=== PATIENT | female | born 1995 | race Hispanic/Latino ===

== ENCOUNTER 2017-04-17 01:18 | Emergency (ER) | payer OTHER ==
[~2017-04-17] VITALS: Ht 157.5 cm; Wt 74.8 kg
[2017-04-17] MEDS ORDERED: LEVOTHYROXINE25 MCG PO (01:44)
[2017-04-17] MEDS ORDERED: AZITHROMYCIN250 M1 PO (01:44)
[2017-04-17] MEDS ORDERED: PROAIR HFA8.5 GM INH (01:44)
--- NOTE | 2017-04-17 01:58 | ED CARDIAC/CP/PALPITATIONS ---
History of Present Illness General Chief Complaint: General Adult Stated Complaint: DIFF BREATHING 02 SAT 99% CHEST DISCOMFORT Source: patient Exam Limitations: no limitations Vital Signs & Intake/Output Vital Signs & Intake/Output Vital Signs Date Time Temp Pulse Resp B/P B/P Pulse O2 O2 Flow FiO2 Mean Ox Delivery Rate 04/17 0500 98.0 89 18 132/86 98 Room Air 04/17 0243 98 Room Air 04/17 0227 98 04/17 0141 97.8 107 18 147/92 98 Room Air Allergies Coded Allergies: NO KNOWN ALLERGIES (01/08/14) Reconcile Medications Albuterol Sulfate (Proair Hfa) 90 MCG HFA.AER.AD 2 PUF INH Q4-6 PRN PRN BRONCHITIS (Reported) Azithromycin 250 MG TABLET 1 DP PO AD BRONCHITIS (Reported) 2 the first day followed by 1 for days 2-5 Levothyroxine Sodium 25 MCG TABLET 1 TAB PO DAILY HYPOTHYROID (Reported) Methylprednisolone. (Medrol) 4 MG TAB.DS.PK 1 DP PO AD INFLAMMATION 6 on day 1 then reduce by one tablet daily until gone Triage Note: TRIAGE: PATIENT TO ER FROM HOME W/ C/O 07/01 CONSTANT SHARP CP X 4 DAYS, +SOB AND PHELEMY COUGH SINCE ONSET. NO ACUTE RESP DISTRESS NOTED, SPEECH CLEAR. CURRENTLY ON MENSES. 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 Triage Nurses Notes Reviewed? yes Onset: Gradual Duration: day(s): (3) Timing: recent history Location: LEFT CHEST Activities at Onset: none Prior Chest Pain/Card Workup: no prior chest pain Associated Symptoms: COUGH, GREEN SPUTUM PRODUCTION : No Patient currently breastfeeds: No HPI: 22 year old female presents with 4 day history of left sided chest pain. States she was put on azithromycin by a walk in clinic and dx with bronchitis. Productive cough for 1 week with green colored sputum. Patient is a smoker. Past History Travel History Traveled to [place] past 21 day No Medical History Any Pertinent Medical History? 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 No Review of Systems Review of Systems Constitutional: Denies: chills, fever. EENTM: Reports: no symptoms. Respiratory: Reports: cough, short of breath, sputum production. Cardiovascular: Reports: chest pain. GI: Denies: abdominal pain, nausea, vomiting. Genitourinary: Reports: no symptoms. Musculoskeletal: Denies: back pain. Skin: Reports: no symptoms. Neurological/Psychological: Reports: no symptoms. Hematologic/Endocrine: Denies: bruising, bleeding. Immunologic/Allergic: Denies: splenectomy. All Other Systems: Reviewed and Negative Physical Exam Physical Exam General Appearance: well developed/nourished, alert, awake, anxious Head: atraumatic, normal appearance Eyes: Bilateral: normal appearance, PERRL, EOMI. Ears, Nose, Throat: normal pharynx, hearing grossly normal Neck: normal inspection, supple, full range of motion Respiratory: normal breath sounds, no respiratory distress, LEFT CHEST WALL TENDERNESS Cardiovascular: regular rate/rhythm Peripheral Pulses: 2+ radial (R), 2+ radial (L) Gastrointestinal: soft, non-tender Neurologic/Psych: no motor/sensory deficits, awake, alert, oriented x 3 Diagram Chest, Abdomen, Back: 1) TENDER TO PALPATION Core Measures ACS in differential dx? Yes ASA ordered for poss ACS? No-ACS ruled out Severe Sepsis Present: No Septic Shock Present: No All Positive = PERC Ruled Out: Positive: age < 50 years, O2 sat > 94%, no hemoptysis, no prior DVT or PE, no unilateral leg swellin, no surgery/trauma w/in 4w. Negative: heart rate < 100 bpm. Progress Differential Diagnosis: costochondritis, musculoskeletal pain, myocarditis, pericarditis, pneumonia, pneumothorax, pulmonary embolism, BRONCHITIS Plan of Care: Orders Procedure Date/time Status Add-on Test (ER Only) 04/17 0403 Active HUMAN BETA HCG TITRE 04/17 0237 Complete PARTIAL THROMBOPLASTIN TIME 04/17 221 Complete PROTHROMBIN TIME 04/17 221 Complete D-DIMER 04/17 221 Complete COMPREHENSIVE METABOLIC PANEL 04/17 221 Complete CBC WITHOUT DIFFERENTIAL 04/17 221 Complete EKG 04/17 221 Active RT ED ORDERS 04/17 0216 Active Laboratory Tests 04/17/17 0237: Anion Gap 16, Estimated GFR > 60, BUN/Creatinine Ratio 18.3, Glucose 116 H, Calcium 9.5, Total Bilirubin 0.3, AST 21, ALT 34, Alkaline Phosphatase 53, Total Protein 7.3, Albumin 4.8, Globulin 2.5, Albumin/Globulin Ratio 1.9, Beta HCG, Quant < 2.4, PT 11.0, INR 1.05, APTT 30, D-Dimer High Sensitivty 248 H, CBC w Diff NO MAN DIFF REQ, RBC 4.54, MCV 93.8, MCH 31.0, RDW 13.3, MPV 10.3, Gran % 73.6, Lymphocytes % 17.3 L, Monocytes % 6.4, Eosinophils % 2.2, Basophils % 0.5 , Absolute Granulocytes 8.1 H, Absolute Lymphocytes 1.9, Absolute Monocytes 0.7 H, Absolute Eosinophils 0.2, Absolute Basophils 0.1, PUBS MCHC 33.0 DUONEB, EKG, D-DIMER 4:49 AM CXR NOT READ BY RADIOLOGY, PATIENT WANTS TO LEAVE AT THIS TIME. IMPROVED AFTER DUONEB. RX SENT TO [facility] FOR MEDROL DOSE PACK (JACLYN CONNELLY,WENDY) Diagnostic Imaging: Viewed by Me: Radiology Read. Discussed w/RAD: Radiology Read. CXR Impression: no acute abnormality Initial ED EKG: NSR, q in III Departure Departure Time of Disposition: 447 Disposition: HOME OR SELF CARE Condition: Stable Clinical Impression Primary Impression: Bronchitis Secondary Impressions: Tobacco abuse Referrals: DOUG CONNELLY,ABELARDO (PCP/Family) Additional Instructions: CONTINUE YOUR AZITHROMYCIN AND PROAIR. TAKE THE PREDNISONE DIRECTED. FOLLOW UP WITH YOUR DOCTOR IN THE OFFICE. STOP SMOKING. RETURN IF WORSE. Departure Forms: Customer Survey General Discharge Information Prescriptions: Current Visit Scripts Methylprednisolone. (Medrol) 1 DP PO AD #1 DP 6 on day 1 then reduce by one tablet daily until gone Critical Care Note Critical Care Note Critical Care Time: non-applicable
[2017-04-17 03:35] LABS: ABSOLUTE BASOPHIL COUNT 0.1 /CUMM (0.0-0.2); ABSOLUTE EOSINOPHIL COUNT 0.2 /CUMM (0.0-0.7); ABSOLUTE GRANULOCYTE CT 8.1 /CUMM (1.4-6.5); ABSOLUTE LYMPH COUNT 1.9 /CUMM (1.2-3.4); ABSOLUTE MONOCYTE COUNT 0.7 /CUMM (0.10-0.60); BASOPHIL % 0.5 % (0.0-2.0); EOSINOPHIL % 2.2 % (0-5); GRANULOCYTE % 73.6 % (42.2-75.2); HEMATOCRIT 42.5 % (37-47); MEAN CORPUSCULAR VOLUME 93.8 FL (81.0-99.0); MEAN PLATELET VOLUME 10.3 FL (7.4-10.4); PLATELET COUNT 274 /CUMM (130-400); RBC DISTRIBUTION WIDTH 13.3 % (11.5-14.5); RED BLOOD CELL CT 4.54 /CUMM (4.20-5.40); WHITE BLOOD CELL COUNT 11.1 /CUMM (4.8-10.8)
[2017-04-17 03:44] LABS: PTT 30 SEC (25-37)
[2017-04-17] MEDS ORDERED: MEDROL4 M2 PO (04:58)
[2017-04-17 05:00] VITALS: BP 132/86
--- NOTE | 2017-04-17 05:02 | RADIOLOGY REPORT ---
EXAMINATION: XR CHEST CLINICAL INFORMATION: Left chest pain. Purulent sputum. Evaluate for pneumonia. COMPARISON: No relevant prior imaging. TECHNIQUE: 2 views of the chest were obtained. FINDINGS: Lungs are clear and well expanded. There is no focal consolidative disease, pleural effusion, or pneumothorax. The cardiac silhouette and upper mediastinal contours are normal. No acute osseous finding. IMPRESSION: Unremarkable chest radiograph. No consolidative disease or effusion.
== END 2017-04-17 05:01 ==
LOC: ERH 01:18
PROVIDERS: Emergency Medicine
DX: J40 Bronchitis, not specified as acute or chronic (principal); Z72.0 Tobacco use; R07.89 Other chest pain
CPT/HCPCS: 1263; 93005; 93010

== ENCOUNTER 2018-06-03 09:15 | Inpatient (IN) | payer OTHER ==
[~2018-06-03] VITALS: Ht 154.9 cm; Wt 84.4 kg
[~2018-06-03 09:15] MED LIST: AZITHROMYCIN250 M1 PO; LEVOTHYROXINE25 MCG PO; MEDROL4 M2 PO; PROAIR HFA8.5 GM INH
[2018-06-03 10:37] LABS: ABSOLUTE BASOPHIL COUNT 0 /CUMM (0.0-0.2); ABSOLUTE EOSINOPHIL COUNT 0 /CUMM (0.0-0.7); ABSOLUTE GRANULOCYTE CT 8.3 /CUMM (1.4-6.5); ABSOLUTE LYMPH COUNT 1.3 /CUMM (1.2-3.4); ABSOLUTE MONOCYTE COUNT 0.6 /CUMM (0.10-0.60); BASOPHIL % 0.3 % (0.0-2.0); EOSINOPHIL % 0.4 % (0-5); GRANULOCYTE % 80.7 % (42.2-75.2); HEMATOCRIT 35.6 % (37-47); MEAN CORPUSCULAR HGB 30.4 PG (27.0-31.0); MEAN CORPUSCULAR HGB CONC 34.3 G/DL (33.0-37.0); MEAN CORPUSCULAR VOLUME 88.8 FL (81.0-99.0); MEAN PLATELET VOLUME 10.2 FL (7.4-10.4); PLATELET COUNT 185 /CUMM (130-400); RBC DISTRIBUTION WIDTH 13.2 % (11.5-14.5); WHITE BLOOD CELL COUNT 10.3 /CUMM (4.8-10.8)
--- NOTE | 2018-06-03 18:09 | History & Physical Pre-Op ---
General Information and HPI History of Present Illness: 23 yo lmp 09/11/2017 edc 06/18/18 at 37w6d presents in labor. care complete and remarkable for bipolar d/o an THC on screen and hypothyroid. 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 EENTM: Reports: no symptoms. Cardiovascular: Reports: no symptoms. Respiratory: Reports: no symptoms. GI: Reports: abdominal pain. Genitourinary: Reports: see HPI. Musculoskeletal: Reports: no symptoms. Skin: Reports: no symptoms. Neurological/Psychological: Reports: no symptoms. Hematologic/Endocrine: Reports: no symptoms. Immunologic/Allergic: Reports: no symptoms. All Other Systems: Reviewed and Negative Exam & Diagnostic Data Last 24 Hrs of Vital Signs/I&O Intake & Output 06/03 1600 06/03 0800 06/03 0000 Intake Total Output Total Balance Patient 186 lb Weight Physical Exam: HEENT: NCAT Chest: CTYA CV: nl S1S2 Ad: gravid, cephalic, EFW 6.5 Cx: 5-6 80% -2 Ext: no c/c/e Neuro: nonfocal Assessment/Plan Assessment/Plan: active labor at 38 weeks expectant mgmt As Ranked By This Provider Problem List: 1.
--- NOTE | 2018-06-03 20:22 | Labor & Delivery Summary ---
Delivery Summary Vaginal Delivery: Vaginal: vertex Episiotomy/Lacerations: Episiotomy/Lacerations: none Placenta: Placenta: spontanteous, normal, 3 vessel Anesthesia: epidural Baby's Weight: 7-3 Apgars - 1 Min: 9 Apgars - 5 Min: 9
[2018-06-04 07:42] LABS: ABSOLUTE BASOPHIL COUNT 0 /CUMM (0.0-0.2); ABSOLUTE EOSINOPHIL COUNT 0 /CUMM (0.0-0.7); ABSOLUTE GRANULOCYTE CT 10.9 /CUMM (1.4-6.5); ABSOLUTE LYMPH COUNT 1.4 /CUMM (1.2-3.4); ABSOLUTE MONOCYTE COUNT 0.8 /CUMM (0.10-0.60); BASOPHIL % 0.2 % (0.0-2.0); EOSINOPHIL % 0.1 % (0-5); GRANULOCYTE % 82.7 % (42.2-75.2); HEMATOCRIT 34.2 % (37-47); MEAN CORPUSCULAR HGB 29.9 PG (27.0-31.0); MEAN CORPUSCULAR HGB CONC 33.6 G/DL (33.0-37.0); MEAN CORPUSCULAR VOLUME 89.1 FL (81.0-99.0); MEAN PLATELET VOLUME 10.9 FL (7.4-10.4); PLATELET COUNT 182 /CUMM (130-400); RBC DISTRIBUTION WIDTH 13.6 % (11.5-14.5); RED BLOOD CELL CT 3.84 /CUMM (4.20-5.40); WHITE BLOOD CELL COUNT 13.2 /CUMM (4.8-10.8)
--- NOTE | 2018-06-05 07:18 | PN- Post Delivery/GYN ---
Subjective Subjective: no c/o; denies need for antidepressant Review of Systems: neg Objective Last 24 Hrs of Vital Signs/I&O vss afebrile Physical Exam: ff ext nt Assessment/Plan Assessment/Plan s/p ppd2 stable discharge f/u 2 weeks possible PPD Problem List: 1.
[2018-06-05] MEDS ORDERED: IBUPROFEN800 M1 PO (07:19)
== END 2018-06-05 09:33 | DRG 560 ==
LOC: CBCO 09:15 → GNO 11:29
PROVIDERS: Obstetrics & Gynecology
PROC: 10E0XZZ Delivery of Products of Conception, External Approach (ICD-10-PCS; principal; 2018-06-03)
DX: O99.284 Endocrine, nutritional and metabolic diseases complicating childbirth (principal); E03.9 Hypothyroidism, unspecified; Z3A.37 37 weeks gestation of pregnancy; Z37.0 Single live birth
CPT/HCPCS: GNOP; GNOS; 36415; 80307; 81001; 84112; J0131; J1885; J2405; J7120